=== PATIENT | male | born 1945 | race Caucasian/White ===

== ENCOUNTER 2018-10-15 08:10 | Emergency (ER) | payer MEDICARE, BC ==
[~2018-10-15] VITALS: Ht 185.4 cm; Wt 86.2 kg
[2018-10-15] MEDS ORDERED: ANDROGEL2.5 GM TD (08:31)
[2018-10-15] MEDS ORDERED: ESCI20 PO (08:31)
[2018-10-15] MEDS ORDERED: Advair Hfa 230-12 GM (08:31)
== END 2018-10-15 09:18 | disposition home or self-care (01) ==
LOC: ER 08:10
DX: S20.212A Contusion of left front wall of thorax, initial encounter (principal); W01.198A Fall on same level from slipping, tripping and stumbling with subsequent striking against other object, initial encounter; Z88.0 Allergy status to penicillin; Z79.899 Other long term (current) drug therapy
CPT/HCPCS: 71101; 99283-25